=== PATIENT | male | born 1995 | race Hispanic/Latino ===

== ENCOUNTER 2016-12-24 17:13 | Emergency (ER) | payer SELFPAY ==
[~2016-12-24] VITALS: Ht 175.3 cm; Wt 88.0 kg
[~2016-12-24 17:13] MED LIST: CEPHALEXIN500 MG PO; CORTISPORIN OTI10 ML AD; NO HOME MEDS
[2016-12-24] MEDS ORDERED: AUGMENTIN500TAB PO (17:46)
[2016-12-24 17:53] VITALS: BP 130/81
== END 2016-12-24 17:53 | disposition home or self-care (01) | DRG 607 ==
LOC: ED 17:13
DX: L60.0 Ingrowing nail (principal)